=== PATIENT | male | born 2000 | race Caucasian/White ===

== ENCOUNTER 2022-10-09 09:08 | Emergency (ER) | payer OTHER, SELFPAY ==
[2022-10-09 09:14] VITALS: BP 146/76; PULSE 83; RESP 18; TEMP 36.6; O2SAT 98
--- NOTE | 2022-10-09 09:25 | ED.URI ---
HPI - URI/Sore Throat General Chief Complaint: Upper Respiratory Infection Stated Complaint: Sore Throat Source: patient and RN notes reviewed History of Present Illness HPI Narrative: 22-year-old male presents urgent care with complaints of a sore throat since Friday. Patient is also reporting postnasal drip and coughing up mucus. Reports intermittent headache. patient states he is having a hard time sleeping at night because of the symptoms. States his co-worker tested positive for strep last week. Patient denies any fevers, chills, ear pain, chest pain, shortness of breath, vomiting and diarrhea. Patient has been drinking tea with honey injury hesitant but taking DayQuil without relief. Some parts of this dictation were generated by voice recognition software and may contain typographical and/or grammatical inaccuracies. Related Data Home Medications Medication Instructions Recorded Confirmed No Home Medications 10/09/22 10/09/22 Allergies Allergy/AdvReac Type Severity Reaction Status Date / Time No Known Allergies Allergy Unverified 10/09/22 09:36 Review of Systems Review of Systems: CONSTITUTIONAL: Denies fever, chills, or sweats. EYES: Denies visual changes, redness, or discharge. ENT: Reports sore throat CARDIOVASCULAR: Denies chest pain, palpitations, or edema. RESPIRATORY: Reports cough. Denies dyspnea. GASTROINTESTINAL: Denies abdominal pain, nausea, vomiting, or diarrhea. GENITOURINARY: Denies dysuria or hematuria. SKIN: Denies rash or itching. MUSCULOSKELETAL: Denies back pain, joint pain, or myalgia. NEUROLOGIC: Reports intermittent headache PMFSH Comments At the time of my signature, I reviewed and agree with the nursing past medical, surgical, social, and family history. There is no relevant family history pertinent to the patient complaint. Exam Narrative: GENERAL: This is a well-nourished, well-developed patient, in no apparent distress. HEAD: normocephalic, atraumatic. EYES: PERRL. Sclera clear/white. Vision is grossly intact. NOSE: Slight runny nose THROAT: Mucous membranes moist, posterior pharynx clear. No exudate noted. No swelling noted. NECK: Neck supple, non-tender without lymphadenopathy, masses or thyromegaly. CARDIOVASCULAR: Regular rate and rhythm without murmurs, gallops, or rubs. RESPIRATORY: Clear to auscultation. Breath sounds equal bilaterally. No wheezes, rales, or rhonchi. SKIN: warm, intact with no suspicious lesions or rash, good texture and turgor. NEURO: awake, alert, and oriented to person, place and time. There were no obvious focal neurologic abnormalities. Course Course Level of Care: Express Care Visit Vital Signs Vital signs: Vital Signs Temperature 97.8 F 10/09/22 09:14 Pulse Rate 83 10/09/22 09:14 Respiratory Rate 18 10/09/22 09:14 Blood Pressure 146/76 H 10/09/22 09:14 Pulse Oximetry 98 10/09/22 09:14 Oxygen Delivery Room Air 10/09/22 09:14 Temperature 97.8 F 10/09/22 09:14 Pulse Rate 83 10/09/22 09:14 Respiratory Rate 18 10/09/22 09:14 Blood Pressure 146/76 H 10/09/22 09:14 Pulse Oximetry 98 10/09/22 09:14 Oxygen Delivery Room Air 10/09/22 09:14 reviewed MDM - URI/Sore Throat MDM Narrative Medical decision making narrative: Viral illness may last between 7-21 days; antibiotics do not cure viral illness and are NOT recommended at this time. Recommend antihistamine such as Benadryl at night time and Zyrtec or Stacia during the day Cough syrup may cause drowsiness; avoid driving or take it at night time. Also, recommend symptomatic treatment includes: rest, fluids, and increase humidity of the air at home. Recommend Acetaminophen and/or ibuprofen as directed on the bottle to reduce fever, pain, headache. Please schedule a follow-up visit with your personal physician for further evaluation and treatment within 3-5days. If your symptoms persist, change or worsen significantly before you can contact your p
== END 2022-10-09 10:07 | disposition home or self-care (01) ==
PROVIDERS: Emergency Provider Nurse Practitioner Family
DX: B34.9 Viral infection, unspecified (principal); J02.9 Acute pharyngitis, unspecified
CPT/HCPCS: 87081; 87880; 99203; G0463

== ENCOUNTER 2023-03-11 17:27 | Emergency (ER) | payer OTHER, SELFPAY ==
--- NOTE | 2023-03-11 17:30 | ED.SKABFB ---
HPI - Skin/Abscess/Foreign Bdy General Chief complaint: Skin/Abscess/Foreign Body Stated complaint: Left arm swelling from bug bite Source: patient and RN notes reviewed Mode of arrival: ambulatory Limitations: no limitations History of Present Illness HPI narrative: Patient is a 22-year-old male who presents to the [facility] with complaints of insect bite to left upper arm. Patient states that he was stung or bitten yesterday while he was at work. He noticed some redness and swelling around the site yesterday that continues to worsen. He patient states that he took a dose of leftover steroids from last week when he had an allergic reaction to shellfish, along with Benadryl and Claritin. Patient states that the swelling alarmed him, so he wanted to get checked out. He denies difficulty breathing or shortness of breath. Denies recent fevers. Related Data Allergies Allergy/AdvReac Type Severity Reaction Status Date / Time No Known Allergies Allergy Unverified 10/09/22 09:36 Review of Systems Review of Systems: CONSTITUTIONAL: Denies fever, chills, or sweats. EYES: Denies visual changes, redness, or discharge. ENT: Denies otalgia and sore throat CARDIOVASCULAR: Denies chest pain, palpitations, or edema. RESPIRATORY: Denies cough or dyspnea. GASTROINTESTINAL: Denies abdominal pain, nausea, vomiting, or diarrhea. GENITOURINARY: Denies dysuria or hematuria. SKIN: Denies rash. Insect bite to left upper arm with surrounding redness and swelling. MUSCULOSKELETAL: Denies back pain, joint pain, or myalgia. NEUROLOGIC: Denies headache, numbness, or weakness. Pertinent positives per HPI. PMFSH Comments At the time of my signature, I reviewed and agree with the nursing past medical, surgical, social, and family history. There is no relevant family history pertinent to the patient complaint. Exam Narrative: GENERAL: This is a well-nourished, well-developed patient, in no apparent distress. HEAD: normocephalic, atraumatic. EYES: Sclera clear/white. Vision is grossly intact. EARS: External ears normal. Hearing grossly intact. NOSE: External nose normal with no obvious nasal discharge, nares without redness, no rhinorrhea. THROAT: Mucous membranes moist, posterior pharynx clear. NECK: Neck supple, non-tender without lymphadenopathy, masses or thyromegaly. CARDIOVASCULAR: Regular rate and rhythm without murmurs, gallops, or rubs. RESPIRATORY: Clear to auscultation. Breath sounds equal bilaterally. No wheezes, rales, or rhonchi. GASTROINTESTINAL: Abdomen soft, non-tender, nondistended. Bowel sounds are active. No hepato-splenomegaly, or palpable masses. No guarding. SKIN: warm, intact with no suspicious lesions, good texture and turgor. Insect bite noted to the left upper arm with surrounding erythema and swelling that extends from the mid lower arm to just below the shoulder. NEURO: awake, alert, and oriented to person, place and time. There were no obvious focal neurologic abnormalities. Course Course Level of Care: Express Care Visit Vital Signs Vital signs: Vital Signs Temperature 97.9 F 03/11/23 17:41 Pulse Rate 90 03/11/23 17:41 Respiratory Rate 16 03/11/23 17:41 Blood Pressure 142/71 H 03/11/23 17:41 Pulse Oximetry 99 03/11/23 17:41 Oxygen Delivery Room Air 03/11/23 17:41 Temperature 97.9 F 03/11/23 17:41 Pulse Rate 90 03/11/23 17:41 Respiratory Rate 16 03/11/23 17:41 Blood Pressure 142/71 H 03/11/23 17:41 Pulse Oximetry 99 03/11/23 17:41 Oxygen Delivery Room Air 03/11/23 17:41 Reviewed MDM - Skin/Abscess/Foreign Bdy MDM Narrative Medical decision making narrative: Clean with soap and water only; Avoid using alcohol and peroxide. Elevate the affected area if possible Alternate Tylenol/ibuprofen for as needed for pain Acetaminophen(Tylenol) 650-1000mg every 4-6hours with max of 4000mg/day. Nonsteroidal anti-inflammatory agent (NSAIDs-ibuprofen): 400mg every 4-6hours wit
[2023-03-11 17:41] VITALS: BP 142/71; PULSE 90; RESP 16; TEMP 36.6; O2SAT 99
== END 2023-03-11 17:52 | disposition home or self-care (01) ==
PROVIDERS: Emergency Provider Nurse Practitioner
DX: S40.862A Insect bite (nonvenomous) of left upper arm, initial encounter (principal); W57.XXXA Bitten or stung by nonvenomous insect and other nonvenomous arthropods, initial encounter
CPT/HCPCS: 99213; G0463

== ENCOUNTER 2023-10-30 19:02 | Emergency (ER) | payer OTHER, SELFPAY ==
[2023-10-30 19:06] VITALS: BP 140/89; PULSE 93; RESP 14; TEMP 36.7; O2SAT 99
--- NOTE | 2023-10-30 19:11 | ED.GENADULT ---
HPI - General Adult General Chief complaint: Upper Respiratory Infection Stated complaint: nose/throat/fever/cough Source: patient, RN notes reviewed and old records reviewed Mode of arrival: ambulatory Limitations: no limitations History of Present Illness HPI narrative: 23-year-old male presents to Express Care with complaint of cough, congestion, sore throat, myalgia, malaise, fever this started 3 days ago. Patient taking [id number] medications with little relief. Patient denies chest pain, shortness of breath, dizziness, weakness Related Data Home Medications Medication Instructions Recorded Confirmed cetirizine 10 mg tablet 10 mg PO DAILY 10/30/23 10/30/23 fluticasone propionate 50 1 spray intranasal BID 10/30/23 10/30/23 mcg/actuation nasal spray,suspension hydrocortisone 2.5 % topical cream 1 applic topical BID 10/30/23 10/30/23 Allergies Allergy/AdvReac Type Severity Reaction Status Date / Time No Known Allergies Allergy Verified 10/30/23 19:16 Review of Systems Constitutional: Constitutional: Reports no additional constitutional complaints, Reports body ache(s), Reports chills, Reports fatigue, Reports fever(s) and Denies headache(s) Eyes: Eyes: Reports no additional eye complaints and Denies blurry vision ENT: Reports system reviewed and no additional complaints, except as documented, Denies vertigo, Denies dizziness, Denies ear discharge, Denies otalgia, Denies facial pain, Reports headache(s), Reports nasal congestion, Reports nasal discharge, Reports sinus pain, Reports sinus pressure and Reports sore throat Cardiovascular: Cardiovascular: Reports no additional cardiovascular complaints, Denies chest pain, Denies chest pain at rest, Denies rapid heart rate and Denies dyspnea Respiratory: Respiratory: Reports no additional respiratory complaints, Reports chest congestion, Reports cough, Denies pain on inspiration, Denies pain with cough and Denies dyspnea Gastrointestinal: Gastrointestinal: Denies abdominal pain, Denies diarrhea, Denies nausea and Denies vomiting Integumentary/Breasts: Skin/Breast: Denies rash Neurologic: Reports system reviewed and no additional complaints, except as documented, Denies vertigo, Denies dizziness and Denies headache(s) Endocrine: Endocrine: Denies fatigue PMFSH Comments At the time of my signature, I reviewed and agree with the nursing past medical, surgical, social, and family history. There is no relevant family history pertinent to the patient complaint. Exam Const: General: cooperative, healthy appearing, no acute distress and well nourished Nutritional Appearance: well nourished Orientation/consciousness: patient oriented x3 Limitations: no limitations HENMT: Head: normal to inspection and normocephalic Ears: external ears normal, TM's normal bilaterally, EAC's normal and mastoids normal Face/Nose/Sinus: Normal nasal mucous membranes and turbinates present and normal facial exam Face and sinus: normal facial exam Mouth: Yes Normal oral and palatal mucosa present, Yes oropharynx normal and Yes moist mucous membranes Throat: tonsils normal, uvula midline, normal tonsils, no peritonsillar masses, posterior oropharynx abnormal erythema and no uvular edema Eyes: General: appearance normal, both eyes and all related structures Sclera: sclerae normal Pupils: Equal, round and reactive pupils present Resp: Effort & Inspection: normal respiratory effort, able to speak in complete sentences, no audible wheezes, no cough, no respiratory distress and no retractions Auscultation: clear to auscultation bilaterally, no crackles, no rales, no rhonchi and no wheezes Cardio: Rate: regular rate Rhythm: regular rhythm Skin: General skin exam: normal color and no rashes or lesions noted Neuro: General: patient oriented x3 Cranial nerves: Yes Equal, round and reactive pupils present Psych: Appearance: grossly normal Mental Status: mental status grossly normal
[2023-10-30 19:16] VITALS: BP 140/89; PULSE 93; RESP 14; TEMP 36.7; O2SAT 99
== END 2023-10-30 19:30 | disposition home or self-care (01) ==
PROVIDERS: Emergency Provider Registered Nurse; PCP Physician Assistant
DX: J10.1 Influenza due to other identified influenza virus with other respiratory manifestations (principal); Z79.899 Other long term (current) drug therapy; Z20.822 Contact with and (suspected) exposure to COVID-19
CPT/HCPCS: 87081; 87426; 87804; 87880; 99213; G0463

== ENCOUNTER 2025-03-15 09:09 | Emergency (ER) | payer OTHER, SELFPAY ==
--- NOTE | 2025-03-15 09:11 | ED_ITS ---
HPI - URI/Sore Throat General Chief Complaint: Upper Respiratory Infection Stated Complaint: cough/chest congestion/rash Time Seen by Provider: 03/15/25 09:38 Source: patient, RN notes reviewed and old records reviewed Mode of arrival: ambulatory Limitations: no limitations History of Present Illness HPI Narrative: 24-year-old male presents with 2 complaints. Reports productive cough, chest congestion for 1 week. Reports he did try Flonase and Zyrtec Denies fevers, chest pain Patient also concern for a rash to the left knee, vesicle areas that have serous discharge. Reports that he did try putting hydrocortisone on it once. Related Data Home Medications ?Medication ?Instructions ?Recorded ?Confirmed ?Last Taken ?Type cetirizine 10 mg tablet 10 mg PO DAILY 10/30/23 10/30/23 Unknown History fluticasone propionate 50 1 spray intranasal BID 10/30/23 10/30/23 Unknown History mcg/actuation nasal spray,suspension hydrocortisone 2.5 % topical cream 1 applic topical BID 10/30/23 10/30/23 Unknown History Allergies Allergy/AdvReac Type Severity Reaction Status Date / Time No Known Allergies Allergy Verified 10/30/23 19:16 Review of Systems 2 Review of Systems: All systems reviewed & are unremarkable except as noted in HPI and below Constitutional: Constitutional: Reports no additional constitutional complaints ENT: Reports system reviewed and no additional complaints, except as documented Cardiovascular: Cardiovascular: Reports no additional cardiovascular complaints, Denies chest pain and Denies dyspnea Respiratory: Respiratory: Reports as per HPI, Reports chest congestion, Reports cough and Denies dyspnea Musculoskeletal: Musculoskeletal: Reports no additional musculoskeletal complaints Integumentary/Breasts: Skin/Breast: Reports as per HPI and Reports rash PMFSH Comments At the time of my signature, I reviewed and agree with the nursing past medical, surgical, social, and family history. There is no relevant family history pertinent to the patient complaint. Exam 2 Const: General: cooperative, healthy appearing, comfortable, no acute distress, well developed, alert and well nourished Nutritional Appearance: w ell nourished Orientation/consciousness: patient oriented x3 Limitations: no limitations HENMT: Head: normal to inspection Ears: hearing grossly normal bilaterally, external ears normal, TM's normal bilaterally, EAC's normal, mastoids normal and no periauricular adenopathy Face/Nose/Sinus: Normal external nose present and Normal nares present Face and sinus: normal facial exam, sinuses nontender and face symmetric Mouth: Yes Normal oral and palatal mucosa present, Yes lip normal, Yes tongue normal and Yes moist mucous membranes Throat: posterior oropharynx normal, uvula midline, postnasal drainage and no uvular edema Eyes: General: appearance normal, both eyes and all related structures A lignment and Position: alignment normal Neck: Neck: normal visual inspection, full ROM, no lymphadenopathy and no meningeal signs Chest: Chest palpation & inspection: normal inspection of the chest Resp: Effort & Inspection: normal respiratory effort and able to speak in complete sentences Auscultation: clear to auscultation bilaterally, no crackles, no rales, no rhonchi and no wheezes Cardio: Rate: regular rate Skin: General skin exam: normal color and no rashes or lesions noted R ashes: rashes noted (Fascicular lesions left anterior knee, proximal lower leg) Full body images: 1. Red vesicular rash consistent with plant dermatitis Neuro: General: patient oriented x3, gait normal, moves all extremities and no meningeal signs Cognition (Neuro): normal cognition Speech: normal speech Gait exam (Neuro): Normal gait present Extrem: General: normal to inspection, full ROM, capillary refill normal and normal gait Psych: Appearance: grossly normal and well kempt Mental Status: mental status grossly normal Speech and movement: Normal speech and movement present and Clear speech present Affect: normal affect Attitude: cooperative Course Course Level of Care: Express Care Visit Vital Signs Vital signs: Vital Signs Temperature 97.3 F L 03/15/25 09:21 Pulse Rate 89 03/15/25 09:21 Respiratory Rate 18 03/15/25 09:21 Blood Pressure 144/67 H 03/15/25 09:21 Pulse Oximetry 99 03/15/25 09:21 Oxygen Delivery Room Air 03/15/25 09:21 Temperature 97.3 F L 03/15/25 09:21 Pulse Rate 89 03/15/25 09:21 Respiratory Rate 18 03/15/25 09:21 Blood Pressure 144/67 H 03/15/25 09:21 Pulse Oximetry 99 03/15/25 09:21 Oxygen Delivery Room Air 03/15/25 09:21 Reviewed MDM - URI/Sore Throat MDM Narrative Medical decision making narrative: Patient sitting in exam room. Patient is nontoxic, vitals stable. Patient presents with a rash and a cough Cough most likely viral no acute findings except for postnasal drainage continue [id number] products Rash consistent with a contact dermatitis, Patient appropriate for outpatient treatment with close Discharge instructions reviewed with patient, as well as provided in writing per nursing staff. The instructions also include specific and strict return/GO TO THE ER as well as f/u information. All questions have been answered, and the patient deny any further questions with discharge and discharge plan. Some parts of this dictation were generated by voice recognition software and may contain typographical and/or grammatical inaccuracies. Differential Diagnosis Differential diagnosis: Likely upper respiratory infection, otitis media, sinusitis, viral infection, bronchitis, influenza and pharyngitis Critical Care Time Critical Care Time Critical Care Time: No Discharge Plan Discharge Clinical Impression: Contact dermatitis due to plant Upper respiratory infection Qualifiers: URI type: unspecified viral URI Qualified Code(s): J06.9 - Acute upper respiratory infection, unspecified Patient Disposition: Home Condition: Stable Instructions: Antibiotic Form, Poison Bertha (ED), Upper Respiratory Infection (ED), Dermatitis (ED) Additional Instructions: Your symptoms are likely due to a viral illness, which is not treated with antibiotics. Typically viral infections last 10-14 days, can linger for couple of weeks. It is very important to treat your symptoms. Drink plenty of water, Gatorade, Pedialyte, ice pops or Jell-O. -Alternate Tylenol and Motrin per package directions for fever or pain. You can alternate every 4 hours -Antihistamine medication such as Zyrtec/Claritin/Stacia during the day can help improve symptoms. -doing daily nasal irrigations can help relieve pressure your sinuses. Things like a Neti pot -Use Flonase twice a day for 5 days then daily to help reduce the inflammation and dry up your sinuses. -You can also use Mucinex. Be sure to drink plenty of water with this medication at least 8 ounces with every dose and it is important to drink 8 to 10 glasses of water per day. Water is a natural decongestant -Frequent hand washing or hand bistro attendant is one of the best ways to prevent spread of infection. -Using a vaporizer or humidifier at night will also help thin secretions and help with coughing up phlegm. -Follow up with primary care provider in 7-10 days if condition is not improving - For new or worsening symptoms go directly to the nearest ER The most important part of your care is follow up with Primary care provider. Today your blood pressure was 144/67 Take Benadryl 25-50 mg every 8 hours for itching Take Zyrtec every day Take Pepcid 20mg daily for 7 days Take the steroids starting today, take 1 dose every morning Apply hydrocortisone cream twice a day Avoid hot showers, Take cool showers. Hot showers will make rashes worse Apply cool compresses every 2-3 hours for 15 minutes Go to the ER for new or worsening symptoms such as shortness of breath. Patient Language: Croatian Prescriptions: New prednisone 20 mg tablet See Rx Instructions .Route .COMPLEX Qty: 20 0RF Rx Instructions: Take 60 mg daily for 3 days, 40 mg daily for 3 days, 20 mg daily for 3 days, 10mg day for 3 days No Action cetirizine 10 mg tablet 10 mg PO DAILY hydrocortisone 2.5 % cream 1 applic TOPICAL BID fluticasone propionate 50 mcg/actuation spray,suspension 1 spray INTRANASAL BID Follow-up/Referrals: Bull,HERNAN Lowe [Primary Care Provider] - 2 Weeks ([facility] care follow up) Time of Disposition: 09:56
--- OUTSIDE RECORDS SUMMARY | 2025-03-15 09:18 | XMS_ITS | Clinical Summary ---
Author Organization [facility] Address [address] [place] [address] Care Team Providers Care Beater Head Name Role Phone No, Physician Primary Care Provider [phone] Allergies Active Allergy Reactions Criticality Noted Date Comments Nickel Rash Medium 02/06/2022 Medications acetaminophen 500 mg capsule Take 2 capsules (1,000 mg total) by mouth every 6 (six) hours as needed for pain 60 capsule 02/09/20 Active Additional Information Patient not taking.Reported on 10/07/2023 senna (SENOKOT) 8.6 mg tablet Take 2 tablets by mouth 2 (two) times a day 30 tablet 02/09/20 22 Active Additional Information Patient not taking.Reported on 10/07/2023 cyclobenzaprine (FLEXERIL) 5 mg tablet Take 1 tablet (5 mg total) by mouth 3 (three) times a day as needed for muscle spasms 30 tablet 02/09/20 Active Additional Information Patient not taking.Reported on 10/07/2023 ibuprofen (ADVIL,MOTRIN) 200 mg tab/cap Take 3 tablet/capsule (600 mg total) by mouth every 8 (eight) hours as needed for pain 45 capsule 02/09/20 22 Active Additional Information Patient not taking.Reported on 10/07/2023 hydrocortisone (ANUSOL-HC) 25 mg suppository Insert 1 suppository (25 mg total) into the rectum 2 (two) times a day Collaborating physician Calvin Nick MD 12 suppository 1 09/10/19 23 Active Additional Information Patient not taking.Reported on 10/07/2023 EPINEPHrine 0.3 mg/0.3 mL auto-injection syringeIndicati ons:Anaphylaxis Inject 0.3 mL (0.3 mg total) into the muscle as instructed Active cetirizine (ZyrTEC) 10 mg tablet Take 1 tablet (10 mg total) by mouth daily as needed for allergies 30 tablet 11 10/07/19 24 Active fluticasone propionate (FLONASE) 50 mcg/actuation nasal spray Administer 1 spray into each nostril 2 (two) times a day 16 g 5 10/07/19 24 Active hydrocortisone 2.5 % cream APPLY TOPICALLY TO THE AFFECTED AREA TWICE DAILY 30 g 02/23/20 24 Active Active Problems Problem Noted Date Diagnosed Date Bright red blood per rectum 09/10/2022 Injury by electrocution, initial encounter 02/06 Social History Tobacco Use Types Packs/Day Years Used Date Smoking Tobacco: Never Smokeless Tobacco: Never Personal Safety Answer Date Recorded Getting School Help Needed Denies 08/29 Sex and Gender Information Value Date Recorded Sex Assigned at Not on file 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 Gender Identity Not on file Sexual Orientation Not on file Obstetrics History Last Filed Vital Signs Vital Sign Reading Time Taken Comments Blood Pressure 127/78 10/07/2023 8:27 AM COCOA BUTTER FILTER OPERATOR Pulse 61 10/07/2023 8:27 AM COCOA BUTTER FILTER OPERATOR Temperature 36.5 C (97.7 F) 10/07/2023 8:27 AM COCOA BUTTER FILTER OPERATOR Respiratory Rate 16 09/10/2022 2:40 PM COCOA BUTTER FILTER OPERATOR Oxygen Saturation 98% 10/07/2023 8:27 AM COCOA BUTTER FILTER OPERATOR Inhaled Oxygen Concentration - - Weight 86.1 kg (189 lb 12.8 oz) 10/07/2023 8:27 AM COCOA BUTTER FILTER OPERATOR Height 177.8 cm (5' 10) 10/07/2023 8:27 AM COCOA BUTTER FILTER OPERATOR Body Mass Index 27.23 10/07/2023 8:27 AM COCOA BUTTER FILTER OPERATOR Plan of Treatment Health Maintenance Due Date Last Done Comments Depression Screening 1998 Hepatitis C Screening 1998 Varicella Vaccines (1 of 2 - 13+ 2-dose series) 2011 HPV Vaccines (1 - Male 3-dos e series) 2013 Hepatitis B Screening 2016 Regular Well Visit/Exam 18-64 2016 Covid-19 Vaccine (3 - 2023-2 5 season) 2024 11/06/2020, 10/09/2020 Influenza Vaccine (#1) 2025 07/12/2003 DTaP/Tdap/Td Vaccine (4 - Td or Tdap) 07/12/2032 07/12/2022, 04/01/2003, 07/16/1999 Pneumococcal vaccine <65 Aged Out No longer eligible based on patient's age to complete this topic Insurance [facility] WORKERS COMPENSATION GENERIC Member Subscriber Plan / Payer (Ef fective 2022-Present) Name:Slava Pisano Member ID:Not on file Relation to Subscriber:Employee Name:SOFIA WILL Subscriber ID:Not on file Address: [address] [place] [address] Payer ID:[id number] Group ID:Not on file Type:WORKERS COMPENSATION [phone] Address: [address] [place] [address] Advance Directives For more information, please contact: [phone] * Full Code (Latest Code Status on File) Date Activated Date Inactivated Comments 02/07/2022 5:42 PM 02/08/2022 10:25 PM Care Teams Beater Head Relationship Specialty Start Date End Date No, Physician PCP - General 02/06/22
--- OUTSIDE RECORDS SUMMARY | 2025-03-15 09:18 | XMS_ITS | Referral Summary ---
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 Gender Identity Not on file Sexual Orientation Not on file Last Filed Vital Signs Vital Sign Reading Time Taken Comments Blood Pressure 127/78 10/07/2023 8:27 AM LOW HEEL BUILDER Pulse 61 10/07/2023 8:27 AM LOW HEEL BUILDER Temperature 36.5 C (97.7 F) 10/07/2023 8:27 AM LOW HEEL BUILDER Respiratory Rate 16 09/10/2022 2:40 PM LOW HEEL BUILDER Oxygen Saturation 98% 10/07/2023 8:27 AM LOW HEEL BUILDER Inhaled Oxygen Concentration - - Weight 86.1 kg (189 lb 12.8 oz) 10/07/2023 8:27 AM LOW HEEL BUILDER Height 177.8 cm (5' 10) 10/07/2023 8:27 AM LOW HEEL BUILDER Body Mass Index 27.23 10/07/2023 8:27 AM LOW HEEL BUILDER Plan of Treatment Not on file Insurance [facility] WORKERS COMPENSATION GENERIC Member Subscriber Plan / Payer (Ef fective 2022-Present) Name:Gale Pisanon Varghese Member ID:Not on file Relation to Subscriber:Employee Name:SOFIA SUMAN Subscriber ID:Not on file Address: [address] [place] [address] Payer ID:[id number] Group ID:Not on file Type:WORKERS COMPENSATION [phone] Address: [address] [place] [address] Advance Directives For more information, please contact: [phone] * Full Code (Latest Code Status on File) Date Activated Date Inactivated Comments 02/07/2022 5:42 PM 02/08/2022 10:25 PM Care Teams Index Editor Relationship Specialty Start Date End Date No, Physician PCP - General 02/06/22
--- OUTSIDE RECORDS SUMMARY | 2025-03-15 09:18 | XMS_ITS | Clinical Summary ---
Author Organization [facility] Address [address] [place] [address] Phone Care Team Providers Care Project Engineering Director Name Role Phone Chrissy Gottlieb PAC Primary Care Pro vider Allergies Active Allergy Reactions Criticality Noted Date Comments Nickel Rash Medium 02/06/2022 Medications cetirizine (ZyrTEC) 10 MG Tablet Take 10 mg by mouth. 10/07/2023 Active fluticasone (FLONASE) 50 MCG/ACT Suspension 1 [place] by Nasal route. 10/07/2023 Active Active Problems No known active problems Encounters Date Type Department Care Team Description 01/12/2025 Telephone [facility] - [facility]enter[facility] [address] [place] [address] Carlota Martinez APRN, METAL LOADER Appointment; Referral from Last 3 Months Immunizations Immunization Administration Dates Next Due Covid-19, Mrna, Lnp-s, Pf, 1 00 Mcg Or 50 Mcg Dose (MODERNA) 11/06/2020,10/09/2020 DTAP VACCINE 04/01/2003 DTAP/HIB COMBINED VACCINE 07/16/1999 Inactivated Polio Vaccine 07/16/1999,04/01/1999 Influenza Vaccine,unspecified Formulation 2002 MMR Vaccine 04/01/2003,04/18/1999 TB Skin Test 10/10/2020 TDAP Vaccine 07/12/2022,07/01/2008 Varicella Vaccine Live 07/01/2008,01/14/2007,08/1998 Family History Medical History Relation Name Comments No Known Problems Father Colon Cancer Maternal Grandmother No Known Problems Mother Relation Name Status Comments Father Alive Maternal Grandmother Mother Alive Social History Tobacco Use Types Packs/Day Years Used Date Smoking Tobacco: Some Days Cigars Smokeless Tobacco: Never Tobacco Cessation:Ready to Q uit: No; Counseling Given: No Alcohol Use Standard Drinks/Week Comments Not Currently 2 (1 standard drink = 0.6 oz pur e alcohol) [facility] Utilities Answer Date Recorded In the past 12 months has [employer] electric, gas, oil, or water company threatened to shut off services in your home? No 11/26/2024 Social Connection and Isolation Panel Answer Date Recorded In a typical week, how many times do you talk on the phone with family, friends, or neighbors? More than three times a week 11/26/2024 How often do you get togethe r with friends or relatives? Once a week 11/26/2024 How often do you attend chur ch or amish services? More than 4 times per year 11/26/2024 Do you belong to any clubs o r organizations such as quaker groups, unions, fraternal or athletic groups, or school groups? Yes 11/26/2024 How often do you attend meet ings of the clubs or organizations you belong to? More than 4 times per year 11/26/2024 Are you , , di vorced, , never , or living with a partner? Living with partner 11/26/2024 AUDIT-C Answer Date Recorded Q1: How often do you have a drink containing alcohol? Never 11/26/2024 Q2: How many drinks containi ng alcohol do you have on a typical day when you are drinking? Patient does not drink Q3: How often do you have si x or more drinks on one occasion? Never 11/26/2024 Overall Financial Resource Strain (CARDIA) Answe r Date Recorded How hard is it for you to pa y for the very basics like food, housing, medical care, and heating? Not very hard 11/26/2024 PHQ-2 Answer Date Recorded Total Score - Questions 1-9 2 11/16 [place] [employer] - Occupational Stress Questionnaire Answer Date Recorded Do you feel stress - tense, restless, nervous, or anxious, or unable to sleep at night because your mind is troubled all the time - these days? Rather much 11/26/2024 Exercise Vital Sign Answer Date Recorde d On average, how many days pe r week do you engage in moderate to strenuous exercise (like a brisk walk)? 6 days 11/26/2024 On average, how many minutes do you engage in exercise at this level? 120 min 11/26/2024 Hunger Vital Sign Answer Date Recorded Within the past 12 months, y ou worried that your food would run out before you got the money to buy more. Never true 11/27/19 25 Within the past 12 months, t he food you bought just didn't last and you didn't have money to get more. Never true 11/26/2024 PRAPARE - Transportation Answer Date Re corded In the past 12 months, has l ack of transportation kept you from medical appointments or from getting medications? No 11/16 In the past 12 months, has l ack of transportation kept you from meetings, work, or from getting things needed for daily living? No 11/26/2024 Housing Stability Vital Sign Answer Cuhy e Recorded In the last 12 months, was t here a time when you were not able to pay the mortgage or rent on time? No 11/26/2024 In the past 12 months, how m any times have you moved where you were living? 0 11/26/2024 At any time in the past 12 m [facility], were you homeless or living in a group home (including now)? No 11/26/2024 Education Answer Date Recorded What is the highest level of school you have completed or the highest degree you have received? GED or equivalent 06/2023 Sexually Active Control Partners Comments Yes Sex and Gender Information Value Date Recorded Sex Assigned at Not on file Legal Sex Male 8:07 PM CDT Gender Identity Not on file Sexual Orientation Not on file Last Filed Vital Signs Vital Sign Reading Time Taken Comments Blood Pressure 110/88 11/26/2024 9:35 AM CDT Pulse 76 11/26/2024 9:35 AM CDT Temperature 36.4 C (97.5 F) 11/26/2024 9:35 AM CDT Respiratory Rate 12 11/26/2024 9:35 AM CDT Oxygen Saturation 98% 11/26/2024 9:35 AM CDT Inhaled Oxygen Concentration - - Weight 80.7 kg (178 lb) 11/26/2024 9:35 AM CDT Height 176.5 cm (5' 9.5) 07/28/2023 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 Body Mass Index 25.91 07/28/2023 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 Plan of Treatment Upcoming Encounters Date Type Department Care Team (Late st Contact Info) Description 11/30/2025 9:30 AM CDT Office Visit [facility] - Internal Medicine - [place] [address] [place] [address] Chrissy Gottlieb, PAC [address] [place] [address] Health Maintenance Due Date Last Done Comments Human Papillomavirus (HPV) Immunization (1 - Male 3-dose series) 2013 Hepatitis B Immunization (1 of 3 - 19+ 3-dose series) 2017 Pneumococcal Immunization Combined (1 of 2 - PCV) 2017 SARS-COV-2 Immunization (3 - season) 2024 11/06/2020, 10/09/2020 Influenza Immunization (#1) 2025 07/12/2003 Respiratory Syncytial Virus (RSV) Immunization (Adult) (1 - 1-dose 75+ series) 2073 DTaP/Tdap/Td Immunization Discontinued 2021, 07/01/2008, 04/01/2003, Additional history exists Hepatitis C Virus (HCV) Screening Completed 04/28/2023, 10/10/2020 Meningococcal Immunization (ACWY) Aged Out No longer eligible based on patient's age to complete this topic Rotavirus Immunization Aged Out No lo nger eligible based on patient's age to complete this topic Procedures Procedure Name Priority Date/Time Associated Diagnosis Comments HEPATITIS C ANTIBODY Routine 04/28/2023 10:18 AM CDT HPV exposure from Last 3 Months or Most Recently Relevant to Health Maintenance Results * HEPATITIS C ANTIBODY (04/28/2023 10:18 AM CDT) hepatitis C antibody 0.10 <1 S/CO [facility] ARCH [id number] B 04/28/2023 9:26 PM CDT [facility] Comment: Signal/Cutoff ratio < 0.79 is Nondetected Signal/Cutoff ratio 0.80-0.99 is Grayzone Signal/Cutoff ratio > 0.99 is Detected Supplemental assays are recommended if signal/cutoff ratio is >/=1.00. Signal/cutoff ratio result >/= 5.00 is 97% predictive of positivity for recombinant immunoblot assay (RIBA) and will be reported to the [place] Department of Public Health as required. Blood Venipuncture / Unknown 04/28/2023 10:18 AM CDT 04/28/2023 10:26 AM CDT Chrissy Gottlieb PAC CHEMISTRY ORDERAB LES Final Result [facility] [address] [place] [address], from Last 3 Months or Most Recently Relevant to Health Maintenance Insurance MEDICAID [place] Care Teams Project Engineering Director Relationship Specialty Start Date End Date Chrissy Gottlieb, DEVIN [address] [place] [address] PCP - General Physician Oyster Bed Worker 09/12/22
[2025-03-15 09:21] VITALS: BP 144/67; PULSE 89; RESP 18; TEMP 36.3; O2SAT 99
== END 2025-03-15 10:01 | disposition home or self-care (01) ==
PROVIDERS: Emergency Provider Nurse Practitioner; PCP Physician Assistant
DX: J06.9 Acute upper respiratory infection, unspecified (principal); L23.7 Allergic contact dermatitis due to plants, except food
CPT/HCPCS: 99213; G0463